=== PATIENT | male | born 1960 | race Caucasian/White ===

== ENCOUNTER → 2016-11-13 | Outpatient (CLI) | payer BC ==
[~2016-11-13] MED LIST: ALBUTEROL17 GM INH; LIPITOR PO; LORTAB 10-5001 EACH PO; MONTELUKAST SOD10 MG PO; SPIRIVA18 MCG INH; SYMBICORT INH; TOPROL XL PO
--- NOTE | ~2016-11-13 | US6 ---
[facility] Service of [facility] RADIOLOGY TEXT RESULTS PATIENT: ROSY ORDAZ LOCATION: [facility] : 56 UNIT #: [id number] AGE: [address]: Masood Bustillo MD SEX: M ORDER DR: [id number] [facility] [address] [place], [place] [address] [id number] O MR#: [id number] Acc #: [id number] NAME: ROSY ORDAZ : 1960 SEX: M STUDY DATE/TIME: 11/13/2016 9:10 UNIT: [facility] ROOM: STUDY DESCRIPTION: US Abdominal Limited Attending Physician: Masood Bustillo M.D. Referring Physician: Masood Bustillo M.D. Ordering Physician: Masood Bustillo M.D. Primary Care Physician: Mau Rizo M.D. MEDICAL IMAGING REPORT This report is preliminary unless electronic signature is present EXAM Right upper quadrant ultrasound, 11/13/2016 HISTORY Abnormally elevated liver enzymes on 10/22/2016. FINDINGS The liver demonstrates an increase in echotexture with attenuation of the ultrasound beam characteristic of fatty infiltration. No cystic or solid mass lesions were seen in the liver. The intra and extrahepatic bile ducts are not dilated. The gallbladder is normal with no evidence of cholelithiasis, wall thickening or pericholecystic fluid. The common duct measures 2.0 mm. The pancreas is normal. The right kidney demonstrates a 1.9 cm simple cyst. IMPRESSION 1. Fatty infiltration of the liver. 2. Normal gallbladder. 3. Right renal cyst. Dictated by... Lalo Ratliff M.D. THIS IS AN ELECTRONICALLY VERIFIED REPORT Lalo Ratliff M.D. at 11/14/2016 2:10 PM Harry TD: 11/13/2016 15:34 JOB #: [id number] MEDICAL IMAGING REPORT Page 1 of 1 COPY
== END | disposition home or self-care (01) ==
LOC: CGUS 08:25
DX: R94.5 Abnormal results of liver function studies (principal); K21.9 Gastro-esophageal reflux disease without esophagitis; R19.7 Diarrhea, unspecified; R13.10 Dysphagia, unspecified; K92.1 Melena; K51.50 Left sided colitis without complications; K76.0 Fatty (change of) liver, not elsewhere classified; N28.1 Cyst of kidney, acquired; Z92.25 Personal history of immunosuppression therapy
CPT/HCPCS: 76705